=== PATIENT | female | born 1985 | race Caucasian/White ===

== ENCOUNTER 2023-12-06 06:15 | Inpatient (IN) | payer OTHER ==
[2023-12-06] MEDS ORDERED: TERBUTALINE 1 MG/ML VIAL SQ PRN (07:03)
[2023-12-06] MEDS ORDERED: METHYLERGONOVINE 0.2 MG/ML 1 ML AMP IM PRN (07:03)
[2023-12-06] MEDS ORDERED: miSOPROStoL 200 MCG TAB PO PRN (07:03)
[2023-12-06] MEDS ORDERED: CARBOPROST TROMETHAMINE 250 MCG/ML 1 ML AMP IM PRN (07:03)
[2023-12-06] MEDS ORDERED: TRANEXAMIC 1,000 MG/100ML-NACL 1,000 MG in EMPTY BAG 1 BAG IV PRN (07:03)
[2023-12-06] MEDS ORDERED: LIDOCAINE 0.5% (PF) 5 MG/ML (50 ML SDV) SQ PRN (07:03)
[2023-12-06] MEDS ORDERED: OXYTOCIN 10 UNIT/ML 1 ML VIAL IM PRN (07:03)
[2023-12-06 07:17] LABS: Glucose,Whole Blood 90 mg/dL (70-110)
[2023-12-06] MEDS: OXYTOCIN 30 UNITS/500 ML NS 30 UNIT in SALINE 1 500ML.BAG IV SCH (07:30)
[2023-12-06] MEDS: LACTATED RINGERS 1,000 ML IV SCH (07:30)
[2023-12-06 07:43] LABS: Basophils % (A) 0 %; Eosinophils # (A) 0.1 k/uL (0-0.7); Eosinophils % (A) 1 %; HCT 37.5 % (34.0-46.0); HGB 12.7 gm/dL (11.4-16.0); Lymphocytes # (A) 1.7 k/uL (1.0-4.8); Lymphocytes % (A) 24 %; MCH 32.3 pg (25.0-35.0); MCHC 33.9 g/dL (31.0-37.0); MCV 95.2 fL (80.0-100.0); Mean Platelet Volume 7.7; Monocytes # (A) 0.4 k/uL (0-1.0); Monocytes % (A) 6 %; Neutrophils # (A) 4.9 k/uL (1.3-7.7); Neutrophils % (A) 67 %; Platelet Count 274 k/uL (150-450); RBC 3.94 m/uL (3.80-5.40); RDW 13.3 % (11.5-15.5); WBC 7.4 k/uL (3.8-10.6)
--- NOTE | 2023-12-06 08:46 | P.HPOB ---
History of Present Illness H&P Date: 12/06/23 Chief Complaint: 39+ weeks, induction The patient is a 38-year-old 1 para 0 admitted at 39-4/7 weeks as established by LMP and confirmed by 21-week ultrasound. She is admitted for elective induction of labor with all signs reassuring, category 1 heart rate tracing. Her has been complicated by presumptive gestational diabetes with good sugar control with diet alone. testing has been reassuring throughout the . She does fall into the category of advanced maternal age and had fraction trisomy testing done which was nega tive. Group B strep status is negative. Obstetrical history: 1 para 0 with current statistics listed in history of present illness. EDC of 12/09/2023 was established by last menstr ual period and confirmed by 21-week ultrasound. Laboratory workup demonstrates a blood type of O+ with a negative antibody screen. Rubella status is immune. The remainder of the laboratory workup was within normal limits. Second trimester Glucola was elevated at 187 and the patient opted to be treated as a diabetic to avoid extra blood sticks. Group B strep status is negative. Gynecologic history: Unremarkable with no history of any infections to include STDs. Review of Systems Review of systems is confined to history of present illness. Past Medical History Past Medical History: Diabetes Mellitus Additional Past Medical History / Comment(s): GDM, ADHD History of Any Multi-Drug Resistant Organisms: None Reported Past Surgical History: Tonsillectomy Additional Past Surgical History / Comment(s): age 5 Past Anesthesia/Blood Transfusion Reactions: No Reported Reaction Past Psychological History: No Psychological Hx Reported Smoking Status: Never smoker Past Alcohol Use History: None Reported Past Drug Use History: None Reported - Past Family History Mother Family Medical History: No Reported History Medications and Allergies Home Medications Medication Instructions Recorded Confirmed Type Aspirin [Adult Low Dose Aspirin EC] 1 tab PO DAILY 12/06/23 12/06/23 History Dextroamphetamine/Amphetamine 1 tab PO BID 12/06/23 12/06/23 History [Adderall Xr 15 mg Capsule] Vit No.179/Iron/Folic 1 tab PO DAILY 12/06/23 12/06/23 History [ Tablet] Allergies Allergy/AdvReac Type Severity Reaction Status Date / Time Sulfa (Sulfonamide Allergy Anaphylaxis Verified 12/06/23 07:03 Antibiotics) codeine AdvReac Nausea & Verified 12/06/23 07:03 Vomiting Exam Vital Signs Temp Pulse Resp BP 12/06/23 07:47 98 F 95 16 147/91 Intake and Output 12/05/23 12/06/23 12/06/23 22:59 06:59 14:59 Other: Weight 94.801 kg In general, this is a well-developed, well-nourished white female in no acute distress. Her heart has a regular rhythm and rate without murmur. Her lungs are clear to auscultation bilaterally in all yi. Her abdomen is gravid, nondistended, has normal active bowel sounds, soft, nontender, and without any palpable masses aside from the uterine fundus. Her extremities are without any cyanosis, clubbing, or edema and are nontender to palpation bilaterally. Digital cervical examination demonstrates her cervix to be approximately 2 cm dilated, 50% effaced, with a vertex and presentation at -2 station. Artificial rupture of membranes is carried out demonstrating clear fluid. Results Result Diagrams: 12/06/23 07:10 Assessment and Plan (1) Term Current Visit: Yes Status: Acute Code(s): Z34.90 - ENCNTR FOR SUPRVSN OF NORMAL , UNSP, UNSP TRIMESTER SNOMED Code(s): 80996862 Plan: The patient is admitted for an elective induction of labor. Pitocin augmentation has been started and artificial rupture of membranes carried out. She will have close maternal and surveillance and expectant management will be practiced. She is a good candidate for either epidural, IV, or nitrous analgesia, whichever she may choose.
[2023-12-06] MEDS: FAMOTIDINE 20 MG/2 ML VIAL IV ONE (11:47)
[2023-12-06] MEDS: NALBUPHINE 10 MG/ML (10 ML MDV) IV PRN (12:36)
[2023-12-06] MEDS ORDERED: ZOLPIDEM 5 MG TAB PO PRN (22:01)
[2023-12-06] MEDS ORDERED: diphenhydrAMINE 50 MG/ML 1 ML VIAL IVP PRN ×2 (22:01)
[2023-12-06] MEDS ORDERED: diphenhydrAMINE 25 MG CAP PO PRN (22:01)
[2023-12-06] MEDS ORDERED: LANOLIN CREAM 1 GM TUBE TOPICAL PRN (22:01)
[2023-12-06] MEDS ORDERED: HYDROCORTISONE 2.5% RECTAL CREAM 30 GM TUBE RECTAL PRN (22:01)
[2023-12-06] MEDS ORDERED: BENZOCAINE/MENTHOL SPRAY 1 GM/SPRAY AEROSOL TOPICAL PRN (22:01)
[2023-12-06] MEDS ORDERED: diphenhydrAMINE 50 MG CAP PO PRN (22:01)
[2023-12-06] MEDS ORDERED: HYDROcodone/APAP 5-325MG 1 EACH TAB PO PRN (22:01)
[2023-12-06] MEDS ORDERED: ACETAMINOPHEN TAB 325 MG TAB PO PRN (22:01)
[2023-12-06] MEDS ORDERED: HYDROcodone/APAP 7.5-325MG 1 EACH TAB PO PRN (22:01)
[2023-12-06] MEDS ORDERED: SIMETHICONE 80 MG CHEWABLE PO PRN (22:01)
--- NOTE | 2023-12-06 22:05 | P.PROBDLV ---
Vaginal Delivery Note - . Vaginal Delivery Note: Patient is a 38-year-old 1 para 0 admitted at 39-4/7 weeks by good dating parameters. She is admitted for elective induction of labor with all signs reassuring, category 1 heart rate tracing. She carries a diagnosis of presumptive gestational diabetes as she had an abnormal 1 hour glucose tolerance test but chose to be treated as a diabetic rather than have the 3-hour glucose tolerance test. Her blood sugars were well-managed with diet alone and she had reassuring testing starting at 32 weeks on a weekly basis. Group B strep status is negative. On labor and delivery, she had Pitocin started and underwent artificial rupture of membranes for clear fluid. She made progress to the active phase of labor and then had an epidural catheter placed for analgesia. She progressed steadily through the active phase of labor and ultimately reach complete or after she pushed for approximately 1 hour and 20 minutes to a normal spontaneous vaginal delivery of a viable 8 pound 7 ounce baby girl with Apgars of 9 at 1 minute and 9 at 5 minutes delivered in the direct occiput anterior position. The placenta was delivered spontaneously, intact, and grossly normal with a grossly normal, centrally inserted three- vessel cord. There were no lacerations of the perineum, vagina, or cervix. Estimated blood loss for the case was approximately 200 mL. There were no complications. Both mother and infant are resting comfortably in recovery.
[2023-12-06] MEDS ORDERED: OXYTOCIN 30 UNITS/500 ML NS 30 UNIT in SALINE 1 500ML.BAG IV SCH (22:15)
[2023-12-07] MEDS: IBUPROFEN 600 MG TAB PO PRN (00:36)
--- NOTE | 2023-12-07 08:37 | P.DS ---
Providers Date of admission: 12/06/23 06:40 Expected date of discharge: 12/07/23 Attending physician: Yang Clemente Primary care physician: Stated None - Discharge Diagnosis(es) (1) Term Current Visit: Yes Status: Acute (2) Normal spontaneous vaginal delivery Current Visit: Yes Status: Acute Hospital Course: The patient is a 38-year-old 1 para 0 admitted at 39-4/7 weeks by good dating parameters. She is admitted for an elective induction with all signs reassuring, category 1 heart rate tracing. Her was complicated by gestational diabetes with good diet control and reassuring testing on a weekly basis starting at 32 weeks. She fell into the category of advanced maternal age and had negative trisomy testing. Group B strep status was negative. On labor and Pitocin started followed by artificial rupture of membranes for clear fluid. She progressed to the active phase of labor and had an epidural catheter placed for analgesia. She is a delivery, she then progressed slowly but steadily through the active phase and ultimately reach complete. She pushed to a normal spontaneous vaginal delivery of a viable 8 pound 7 ounce baby girl with Apgars of 9 at 1 minute and 9 at 5 minutes. Her course was unremarkable with vital signs remaining stable and her temperature was afebrile throughout. She was deemed stable for discharge on day #1 and was discharged home to follow-up in the office in 6 weeks time routinely. Discharge instructions included calling for any significantly increased bleeding or foul-smelling lochia, significantly increased fever or abdominal pain, perineal complaints, breast complaints, or anything else that concerned her. She was additionally instructed to have nothing in the vagina for at least 6 weeks time to include intercourse. She understood her instructions and agrees to follow-up as noted above. Discharge medications included continued vitamins as she has opted to breast-feed. She was otherwise to use [id number] analgesic pain medications as needed. Maternal blood type is O+ and rubella status is immune. Patient Condition at Discharge: Stable Plan - Discharge Summary New Discharge Prescriptions: No Action Aspirin [Adult Low Dose Aspirin EC] 1 tab PO DAILY Vit No.179/Iron/Folic [ Tablet] 1 tab PO DAILY Dextroamphetamine/Amphetamine [Adderall Xr 15 mg Capsule] 1 tab PO BID Discharge Medication List Aspirin [Adult Low Dose Aspirin EC] 1 tab PO DAILY 12/06/23 [History] Dextroamphetamine/Amphetamine [Adderall Xr 15 mg Capsule] 1 tab PO BID 12/06/23 [History] Vit No.179/Iron/Folic [ Tablet] 1 tab PO DAILY 12/06/23 [History] Follow up Appointment(s)/Referral(s): Yang Clemente MD [STAFF PHYSICIAN] - 6 Weeks Discharge Disposition: HOME SELF-CARE
[2023-12-07] MEDS: SENNOSIDES-DOCUSATE SODIUM 1 EACH TAB PO SCH (09:48)
[2023-12-07 12:27] VITALS: RESP 20
[2023-12-07 18:52] VITALS: BP 133/85; PULSE 93; TEMP 99.2
== END 2023-12-07 22:10 | disposition home or self-care (01) | DRG 560 ==
LOC: 4FBP 06:40
PROVIDERS: ADMIT Obstetrics & Gynecology; ATTEND Obstetrics & Gynecology
PROC: 10E0XZZ Delivery of Products of Conception, External Approach (ICD-10-PCS; principal; 2023-12-06)
PROC: 10907ZC Drainage of Amniotic Fluid, Therapeutic from Products of Conception, Via Natural or Artificial Opening (ICD-10-PCS; 2023-12-06)
PROC: 3E033VJ Introduction of Other Hormone into Peripheral Vein, Percutaneous Approach (ICD-10-PCS; 2023-12-06)
DX: O24.429 Gestational diabetes mellitus in childbirth, unspecified control (principal); Z37.0 Single live birth; Z3A.39 39 weeks gestation of pregnancy; Z79.82 Long term (current) use of aspirin; Z79.899 Other long term (current) drug therapy; Z88.2 Allergy status to sulfonamides; Z88.5 Allergy status to narcotic agent
CPT/HCPCS: 85025; 86850; 86900; 86901